=== PATIENT | female | born 1950 | race Caucasian/White ===

== ENCOUNTER 2016-12-17 18:48 | Emergency (ER) | payer OTHER ==
--- NOTE | 2016-12-17 19:27 | PDOC ---
History of Present Illness - General History Source: Patient Exam Limitations: No Limitations - History of Present Illness Initial Comments: 12/17/16 19:35 The patient is a 66 year old female brought via EMS, with a significant past medical history of bilateral breast CA, HTN, right knee arthritis and depression , who presents to the emergency department with abdominal pain and right flank pain since this morning. She describes her pain as ranging from mild to moderate , without radiation. She reports that certain movements exacerbates the pain. She notes that the pain started off gradually and has worsened. She denies taking any kind of medications. She states that she was given Toradol by EMS which has helped her pain. She reports that she takes stool softner everyday due to her constipation. She notes that she recently moved to [place]. The patient denies chest pain, shortness of breath, headache and dizziness. Denies fever, chills, nausea, vomit, diarrhea and constipation. Denies dysuria, frequency, urgency and hematuria. Allergies: None Past surgical history: left knee replacement and (x2) Social history: No alcohol, tobacco or drug use reported <Jovon Carey - Last Filed: 12/17/16 19:41> <Mu Dixon - Last Filed: 12/17/16 22:35> - General Chief Complaint: Pain, Acute Stated Complaint: ABDOMINAL PAIN Past History <Jovon Carey - Last Filed: 12/17/16 19:41> - Past Medical History Cancer: Yes (bilateral breast) HTN: Yes Psychiatric Problems: Yes (depression) - Suicide/Smoking/Psychosocial Hx Smoking History: Never smoked Have you smoked in the past 12 months: No Information on smoking cessation initiated: No Hx Alcohol Use: No Drug/Substance Use Hx: No <Mu Dixon - Last Filed: 12/17/16 22:35> - Past Medical History Allergies/Adverse Reactions: Allergies Allergy/AdvReac Type Severity Reaction Status Date / Time No Known Allergies Allergy Verified 12/17/16 19:09 Home Medications: Ambulatory Orders Calcium Carbonate [Calcium] 1,200 mg PO DAILY 12/17/16 Diclofenac Sodium 75 mg PO BID 12/17/16 Duloxetine HCl 60 mg PO BID 12/17/16 Levofloxacin [Levaquin] 750 mg PO DAILY #10 tablet 12/17/16 Lisinopril/Hydrochlorothiazide [Lisinopril-Hctz 20-12.5 mg Tab] 1 each PO DAILY 12/17/16 [place]-3S/Dha/Epa/Fish Oil [Fish Oil 1,200 mg Softgel] 2 each PO DAILY 12/17/16 Omeprazole 40 mg PO DAILY 12/17/16 Ondansetron [Zofran Odt -] 4 mg SL TID #21 od.tablet 12/17/16 Oxycodone HCl/Acetaminophen [Percocet 5-325 mg Tablet] 1 tab PO Q4H #20 tablet MDD 6 12/17/16 Tamsulosin HCl [Flomax] 0.4 mg PO DAILY #10 cap.er.24h 12/17/16 Tramadol HCl 50 mg PO Q6H PRN 12/17/16 Review of Systems - Review of Systems Able to Perform ROS?: Yes Comments:: 12/17/16 19:35 GENERAL/CONSTITUTIONAL: No fever or chills. No weakness. HEAD, EYES, EARS, NOSE AND THROAT: No change in vision. No ear pain or discharge. No sore throat.- CARDIOVASCULAR: No chest pain or shortness of breath RESPIRATORY: No cough, wheezing, or hemoptysis. GASTROINTESTINAL: (+) Abdominal pain and right flank pain. No nausea, vomiting, diarrhea or constipation. GENITOURINARY: No dysuria, frequency, or change in urination. MUSCULOSKELETAL: No joint or muscle swelling or pain. No neck or back pain. SKIN: No rash NEUROLOGIC: No headache, vertigo, loss of consciousness, or change in strength/ sensation. ENDOCRINE: No increased thirst. No abnormal weight change HEMATOLOGIC/LYMPHATIC: No anemia, easy bleeding, or history of blood clots. ALLERGIC/IMMUNOLOGIC: No hives or skin allergy. <Jovon Carey - Last Filed: 12/17/16 19:41> *Physical Exam - Vital Signs Last Vital Signs Temp Pulse Resp BP Pulse Ox 97.6 F 97 H 20 166/91 99 12/17/16 19:05 12/17/16 19:05 12/17/16 19:05 12/17/16 19:05 12/17/16 19:05 - Physical Exam Comments: 12/17/16 19:36 GENERAL: Awake, alert, and fully oriented, in no acute distress HEAD: No signs of trauma, normocephalic, atraumatic EYES: PERRLA, EOMI, sclera anicteric, conjunctiva clear ENT: Auricles normal inspection, hearing grossly normal, nares patent, oropharynx clear without exudates. Moist mucosa NECK: Normal ROM, supple, no lymphadenopathy, JVD, or masses LUNGS: No distress, speaks full sentences, clear to auscultation bilaterally HEART: Regular rate and rhythm, normal S1 and S2, no murmurs, rubs or gallops, peripheral pulses normal and equal bilaterally. ABDOMEN: Soft, nontender, normoactive bowel sounds. No guarding, no rebound. No masses EXTREMITIES : Normal inspection, Normal range of motion, no edema. No clubbing or cyanosis. NEUROLOGICAL: Cranial nerves II through XII grossly intact. Normal speech, normal gait, no focal sensorimotor deficits SKIN: Warm, Dry, normal turgor, no rashes or lesions noted. <Jovon Carey - Last Filed: 12/17/16 19:41> - Vital Signs Last Vital Signs Temp Pulse Resp BP Pulse Ox 97.6 F 97 H 20 166/91 99 12/17/16 19:05 12/17/16 19:05 12/17/16 19:05 12/17/16 19:05 12/17/16 19:05 <Mu Dixon - Last Filed: 12/17/16 22:35> ED Treatment Course - LABORATORY CBC & Chemistry Diagram: 12/17/16 20:50 12/17/16 20:50 <Mu Dixon - Last Filed: 12/17/16 22:35> *DC/Admit/Observation/Transfer - Attestations Scribe Attestion: 12/17/16 19:36 Documentation prepared by Jovon Carey, acting as biomedical engineering technologist for Mu Dixon MD <Jovon Carey - Last Filed: 12/17/16 19:41> - Discharge Dispostion Admit: No - Attestations Physician Attestion: 12/17/16 19:26 I, Dr. Mu Dixon, attest that this document has been prepared under my direction and personally reviewed by me in its entirety. I further attest, that it accurately reflects all work, treatment, procedures and medical decision -making performed by me. <Mu Dixon - Last Filed: 12/17/16 22:35> Diagnosis at time of Disposition: Kidney stone - Prescriptions Prescriptions: Tamsulosin HCl [Flomax] 0.4 mg PO DAILY #10 cap.er.24h Levofloxacin [Levaquin] 750 mg PO DAILY #10 tablet Oxycodone HCl/Acetaminophen [Percocet 5-325 mg Tablet] 1 tab PO Q4H #20 tablet MDD 6 Ondansetron [Zofran Odt -] 4 mg SL TID #21 od.tablet - Referrals Referrals: Julio Moreland MD [Staff Physician] - - Patient Instructions Printed Discharge Instructions: DI for Kidney Stones, DI for Urinary Tract Infection (UTI) Additional Instructions: Mrs Marion - Sorry this is happening to you....... you have both a kidney stone and a urinary tract infection. It is very important that you follow up with a urologist although I do not think that you will need a procedure or any surgery. The stone will most probably pass on its own. Return to us if worse. Take the Levaquin and the Flomax every day, once a day. The Percocet is for bad pain and it will most likely upset your stomach. Zofran ODT if for your upset stomach. I hope you feel much better soon. Best- / Mu Dixon
[2016-12-17 19:33] VITALS: BP 166/91; PULSE 97; TEMP 97.6; BMI 39.9
[2016-12-17] MEDS ORDERED: morphine CARPU-JECT 2 MG/1 ML DISP.SYRIN ONE ×2 (20:36→22:47)
[2016-12-17] MEDS ORDERED: ONDANSETRON 4 MG/2 ML VIAL IVPUSH ONE ×2 (20:36→22:42)
[2016-12-17] MEDS ORDERED: morphine CARPU-JECT 4 MG/1 ML DISP.SYRIN IVPUSH ONE (20:36)
[2016-12-17] MEDS ORDERED: ONDANSETRON 4 MG/2 ML VIAL ONE ×2 (20:37→22:47)
[2016-12-17 21:03] LABS: BASOPHIL 0.6 % (0-2.0); EOSINOPHIL 1.2 % (0-4.5); MCH 30.6 pg (25.7-33.7); MCHC 33.7 g/dl (32.0-36.0); MEAN CELL VOLUME 90.8 fl (80-96); MEAN PLT VOLUME 7.4 fl (7.5-11.1); NEUTROPHILS 80.2 % (42.8-82.8); PLATELET COUNT 262 K/MM3 (134-434); RDW 12.9 % (11.6-15.6); WHITE BLOOD COUNT 9.7 K/mm3 (4.0-10.0)
[2016-12-17 21:05] LABS: URINE APPEARANCE SLCLOUDY; URINE BILIRUBIN NEGATIVE (NEGATIVE); URINE BLOOD 2+ (NEGATIVE); URINE COLOR YELLOW; URINE GLUCOSE (UA) NEGATIVE (NEGATIVE); URINE KETONE NEGATIVE (NEGATIVE); URINE NITRITE NEGATIVE (NEGATIVE); URINE PROTEIN NEGATIVE (NEGATIVE); URINE UROBILINOGEN NEGATIVE mg/dL (0.2-1.0)
[2016-12-17 21:09] LABS: URINE HYALINE CAST 3 /lpf; URINE MUCUS RARE; URINE RBC 115 /hpf (0-3); URINE WBC 10 /hpf (3-5)
[2016-12-17 21:19] LABS: INR 0.95 (0.82-1.09); PROTHROMBIN TIME (PATIENT) 10.7 SEC (9.98-11.88)
[2016-12-17 21:29] LABS: ALBUMIN 3.4 g/dl (3.4-5.0); ALK PHOS 48 U/L (45-117); ANION GAP 8 (8-16); BILIRUBIN,TOTAL 0.4 mg/dL (0.2-1.0); CALCIUM 8.8 mg/dL (8.5-10.1); CO2 25 mmol/L (21-32); CREATININE 1.3 mg/dL (0.55-1.02); GLUCOSE,RANDOM 117 mg/dL (74-106); SGOT/AST 17 U/L (15-37); SGPT/ALT 20 U/L (12-78); TOT PROT 6.7 g/dl (6.4-8.2)
[2016-12-17] MEDS ORDERED: SODIUM CHLORIDE 1,000 ML IV STA (22:19)
[2016-12-17] MEDS ORDERED: ONDANSETRON *ODT* 4 MG TABLET SL ONE (22:35)
[2016-12-17] MEDS ORDERED: morphine CARPU-JECT 2 MG/1 ML DISP.SYRIN IVPUSH ONE (22:42)
[2016-12-17 23:10] LABS: URINE LEUK ESTERASE Negative (NEGATIVE)
[2016-12-17] MEDS ORDERED: ACETAMINOPHEN 1000 MG/100 ML VIAL (NON FORMULARY) IVPB ONE (23:15)
[2016-12-17] MEDS ORDERED: ACETAMINOPHEN INJECTION 100 ML IVPB ONE (23:21)
[2016-12-17] MEDS ORDERED: LEVOFLOXACIN 750 MG IVPB 150 ML IVPB ONE ×2 (23:27→23:45)
== END 2016-12-18 01:47 | disposition home or self-care (01) ==
LOC: JER 18:48
PROC: 3E0337Z Introduction of Electrolytic and Water Balance Substance into Peripheral Vein, Percutaneous Approach (ICD-10-PCS; principal; 2016-12-17)
PROC: 3E03329 Introduction of Other Anti-infective into Peripheral Vein, Percutaneous Approach (ICD-10-PCS; 2016-12-17)
PROC: 3E033GC Introduction of Other Therapeutic Substance into Peripheral Vein, Percutaneous Approach (ICD-10-PCS; 2016-12-17)
PROC: 3E033NZ Introduction of Analgesics, Hypnotics, Sedatives into Peripheral Vein, Percutaneous Approach (ICD-10-PCS; 2016-12-17)
PROC: 3E033NZ Introduction of Analgesics, Hypnotics, Sedatives into Peripheral Vein, Percutaneous Approach (ICD-10-PCS; 2016-12-17)
DX: N13.2 Hydronephrosis with renal and ureteral calculous obstruction (principal); I10 Essential (primary) hypertension; M13.861 Other specified arthritis, right knee; F32.9 Major depressive disorder, single episode, unspecified; Z85.3 Personal history of malignant neoplasm of breast
CPT/HCPCS: 36415; 74176; 80053; 81003; 81015; 85025; 85610; 87086; 99282-25